=== PATIENT | female | born 1995 | race Caucasian/White ===

== ENCOUNTER 2019-08-16 17:53 | Outpatient (CLI) | payer OTHER ==
--- NOTE | 2019-08-16 22:39 | Ultrasound Report ---
Reason: POSITIVE TEST Procedure Date: 08/16/2019 Accession Number: [id number] / [id number] Procedure: US - OB First Trimester CPT Code: Final Report FULL RESULT: PROCEDURE: OB First Trimester INDICATIONS: POSITIVE TEST OUTSIDE/PRIOR DATING DATA: Last menstrual period (LMP): 06/14/2019. LMP-based estimated date of delivery (LILIANA): 03/20/2020. First dating scan (date and location): 08/16/2019. Estimated date of delivery (LILIANA) from first dating scan: 03/20/2020. TECHNIQUE: Real-time scanning was performed of the fetus and maternal pelvic organs, with image documentation. COMPARISON: None. FINDINGS: Embryo: There is a single living intrauterine gestation with an estimated sonographic gestational age of approximately 9 weeks and 6 days based off mean gestational sac diameter 4.4 cm. Estimated gestational age based off crown-rump length of 2.1 cm is approximately 8 weeks and 5 days. heart rate measured 160 bpm. A pole and normal yolk sac is visualized. There is a perigestational hemorrhage measuring 1.2 x 0.9 x 1.1 cm. Measurement variability in dating: +/- 4 weeks by LMP, +/- 7 days by mean sac diameter (use before 6 weeks gestation if crown-rump length not able to be measured), +/- 5 days by crown-rump length (6-12 weeks gestation). Maternal organs: There is a corpus luteal cyst noted in the left ovary. Right ovary is obscured by bowel gas. Maternal cervical length measured 3.8 cm in length. Limited images through the kidneys demonstrate no hydronephrosis. IMPRESSION: 1. Single living intrauterine gestation with an estimated sonographic gestational age of approximately 8 weeks and 5 days. Recommend follow-up second trimester anatomic screening survey. 2. Small perigestational hemorrhage. Recommend continued clinical surveillance. Reviewed by: Merlin Kohler MD on 08/16/2019 10:38 PM PDT Approved by: Merlin Kohler MD on 08/16/2019 10:38 PM PDT Station ID: [id number]
== END 2019-08-16 17:54 | disposition home or self-care (01) ==
LOC: DI 17:53
PROVIDERS: ATTEND Advanced Practice Midwife
DX: O20.9 Hemorrhage in early pregnancy, unspecified (principal); Z3A.08 8 weeks gestation of pregnancy
CPT/HCPCS: 76801

== ENCOUNTER 2019-08-25 08:00 | Outpatient (CLI) | payer OTHER ==
[2019-08-25 15:46] LABS: MUDS CUTOFF CONCENTRATIONS CUTOFF CONC BELOW:
[2019-08-25 16:01] LABS: BILIRUBIN,URINE NEGATIVE (NEGATIVE); GLUCOSE, URINE (UA) NEGATIVE (NEGATIVE); KETONES,URINE (UA) NEGATIVE (NEGATIVE); LEUKOCYTE ESTERASE, URINE NEGATIVE (NEGATIVE); NITRITE,URINE NEGATIVE (NEGATIVE); OCCULT BLOOD,URINE NEGATIVE (NEGATIVE); PROTEIN,URINE NEGATIVE (NEGATIVE); UROBILINOGEN,URINE 0.2 (NORMAL) E.U./dL (NORMAL)
[2019-08-25 16:04] LABS: CLARITY,URINE HAZY (CLEAR)
[2019-08-25 16:08] LABS: AMPHETAMINE SCREEN,URINE NEGATIVE (NEGATIVE); BENZODIAZEPINES SCREEN, URINE NEGATIVE (NEGATIVE); COCAINE SCREEN URINE NEGATIVE (NEGATIVE); METHADONE SCREEN, URINE NEGATIVE (NEGATIVE); METHAMPHETAMINES SCREEN, URINE NEGATIVE (NEGATIVE); OPIATE SCREEN, URINE NEGATIVE (NEGATIVE); OXYCODONE SCREEN, URINE NEGATIVE (NEGATIVE); PROPOXYPHENE SCREEN, URINE NEGATIVE (NEGATIVE); TRICYCLIC ANTIDEPRESSANT,URINE NEGATIVE (NEGATIVE)
[2019-08-25 16:18] LABS: AMORPHOUS SEDIMENT,UR Moderate /LPF; BACTERIA,URINE None Seen /HPF (None Seen); RBC,URINE None Seen /HPF (0-5); SQUAMOUS EPITHELIAL CELL,UR NONE SEEN (<= Few)
[2019-08-25 18:37] LABS: CANDIDA GROUP DNA NEGATIVE (NEGATIVE); CANDIDA KRUSEI DNA NEGATIVE (NEGATIVE); TRICHOMONAS VAGINALIS DNA NEGATIVE (NEGATIVE)
== END 2019-08-25 23:59 | disposition home or self-care (01) ==
LOC: LAB.R 08:00
PROVIDERS: ATTEND Advanced Practice Midwife
DX: Z34.90 Encounter for supervision of normal pregnancy, unspecified, unspecified trimester (principal); Z36.89 Encounter for other specified antenatal screening; N76.0 Acute vaginitis
CPT/HCPCS: 80306; 81001; 87086; 87661; 87801

== ENCOUNTER 2019-08-30 13:11 | Outpatient (CLI) | payer OTHER ==
[2019-08-30 18:27] LABS: BASOPHILS % (AUTO) 0.3 %; EOSINOPHILS # (AUTO) 0.1 10^3/uL (0.0-0.7); HGB - HEMOGLOBIN 13.5 g/dL (12.0-16.0); LYMPHOCYTES % (AUTO) 14.2 %; MEAN CORPUSCULAR HEMOGLOBIN 29.9 pg (27.0-31.0); MEAN CORPUSCULAR HGB CONC 33.1 g/dL (32.0-36.0); MEAN CORPUSCULAR VOLUME 90.3 fL (81.0-99.0); MEAN PLATELET VOLUME 11.2 fL (7.9-10.8); MONOCYTES # (AUTO) 0.4 10^3/uL (0.0-1.0); MONOCYTES % (AUTO) 5.3 %; NEUTROPHILS # (AUTO) 5.3 10^3/uL (1.5-6.6); NEUTROPHILS % (AUTO) 78.8 %; PLT - PLATELET COUNT 211 10^3/uL (130-450); RED BLOOD COUNT 4.52 10^6/uL (4.20-5.40); RED CELL DISTRIBUTION WIDTH 12.2 % (12.0-15.0); WHITE BLOOD COUNT 6.8 x10^3/uL (4.8-10.8)
[2019-08-31 09:55] LABS: HIV AG/AB 4TH GEN NON-REACTIVE (NON-REACTIVE)
[2019-08-31 13:04] LABS: HEPATITIS B SURFACE ANTIGEN NON-REACTIVE (NON-REACTIVE)
== END 2019-08-30 23:59 | disposition home or self-care (01) ==
LOC: LAB.WCP 13:11
PROVIDERS: ATTEND Advanced Practice Midwife
DX: O99.280 Endocrine, nutritional and metabolic diseases complicating pregnancy, unspecified trimester (principal); E03.9 Hypothyroidism, unspecified; Z36.89 Encounter for other specified antenatal screening; Z3A.00 Weeks of gestation of pregnancy not specified; Z20.6 Contact with and (suspected) exposure to human immunodeficiency virus [HIV]
CPT/HCPCS: 36415; 81599; 84443; 85025; 86592; 86762; 86850; 86900; 86901; 87340; 87389; 87522

== ENCOUNTER 2019-11-03 07:00 | Outpatient (CLI) | payer OTHER ==
[2019-11-03 19:12] LABS: CANDIDA GROUP DNA NEGATIVE (NEGATIVE); CANDIDA KRUSEI DNA NEGATIVE (NEGATIVE); TRICHOMONAS VAGINALIS DNA NEGATIVE (NEGATIVE)
== END 2019-11-03 23:59 | disposition home or self-care (01) ==
LOC: LAB.R 07:00
PROVIDERS: ATTEND Advanced Practice Midwife
DX: N76.0 Acute vaginitis (principal); Z34.90 Encounter for supervision of normal pregnancy, unspecified, unspecified trimester
CPT/HCPCS: 87661; 87801

== ENCOUNTER 2019-11-09 07:00 | Outpatient (CLI) | payer OTHER ==
[2019-11-10 10:19] LABS: BILIRUBIN,URINE NEGATIVE (NEGATIVE); GLUCOSE, URINE (UA) NEGATIVE (NEGATIVE); KETONES,URINE (UA) NEGATIVE (NEGATIVE); LEUKOCYTE ESTERASE, URINE NEGATIVE (NEGATIVE); NITRITE,URINE NEGATIVE (NEGATIVE); OCCULT BLOOD,URINE NEGATIVE (NEGATIVE); PH,URINE 7.5 PH (5.0-7.5); PROTEIN,URINE NEGATIVE (NEGATIVE); UROBILINOGEN,URINE 0.2 (NORMAL) E.U./dL (NORMAL)
[2019-11-10 10:23] LABS: CLARITY,URINE CLEAR (CLEAR)
[2019-11-10 10:33] LABS: AMORPHOUS SEDIMENT,UR Few /LPF; BACTERIA,URINE Few /HPF (None Seen); SQUAMOUS EPITHELIAL CELL,UR FEW Squamous (<= Few)
== END 2019-11-09 23:59 | disposition home or self-care (01) ==
LOC: LAB.R 07:00
PROVIDERS: ATTEND Advanced Practice Midwife
DX: N76.0 Acute vaginitis (principal)
CPT/HCPCS: 81001; 87086

== ENCOUNTER 2019-11-14 16:52 | Outpatient (CLI) | payer OTHER ==
[2019-11-14 17:36] LABS: BILIRUBIN,URINE NEGATIVE (NEGATIVE); GLUCOSE, URINE (UA) NEGATIVE (NEGATIVE); KETONES,URINE (UA) NEGATIVE (NEGATIVE); LEUKOCYTE ESTERASE, URINE NEGATIVE (NEGATIVE); NITRITE,URINE NEGATIVE (NEGATIVE); OCCULT BLOOD,URINE MODERATE (NEGATIVE); PROTEIN,URINE NEGATIVE (NEGATIVE); UROBILINOGEN,URINE 0.2 (NORMAL) E.U./dL (NORMAL)
[2019-11-14 17:46] LABS: CLARITY,URINE CLEAR (CLEAR)
[2019-11-14 17:47] LABS: BACTERIA,URINE None Seen /HPF (None Seen); RBC,URINE 0-5 /HPF (0-5); SQUAMOUS EPITHELIAL CELL,UR RARE Squamous (<= Few)
[2019-11-14 19:51] VITALS: BP 114/58
[2019-11-14] MEDS ORDERED: metroNIDAZOLE 250 MG TABLET PO SCH (19:57)
--- NOTE | 2019-11-14 20:20 | Ultrasound Report ---
PROCEDURE: OB Limited INDICATIONS: 22 weeks with cramping, cervix short digital exam OUTSIDE/PRIOR DATING DATA: Last menstrual period (LMP): 06/14/2019. LMP-based estimated date of delivery (LILIANA): 03/20/2020. First dating scan (date and location): 08/16/2019. Estimated date of delivery (LILIANA) from first dating scan: 03/22/2020. TECHNIQUE: Real-time scanning was performed of the fetus, with image documentation. Endovaginal scanning: Not needed COMPARISON: 2 prior OB ultrasound studies for this 08/16/2019, and 10/30/2019. FINDINGS: A single living intrauterine gestation is present. Presentation: Breech Placenta: Placental position is anterior, without previa. Amniotic fluid index: 15.8 cm, normal for gestational age. heart rate: 137 beats per minutes. Maternal cervical canal: 3.8 cm long; normal length is 2.5 cm or more. Estimated gestational age from initial scan: 21 weeks 4 days. IMPRESSION: Single living intrauterine gestation with vertex presentation currently, vertex previous ly. There is a normal amniotic fluid volume, and no evidence of placenta previa. No sign of placental abruption. No subchorionic hemorrhage. Reviewed by: Larry Baez MD on 11/14/2019 8:18 PM PDT Approved by: Larry Baez MD on 11/14/2019 8:18 PM PDT Station ID: [id number]
--- NOTE | 2019-11-14 20:34 | PROCEDURE REPORT ---
- HPI Diagnosis/Indication for NST: Other (Cramping pain) Vital Signs Temperature 99.0 F 11/14/19 19:47 Heart Rate 71 11/14/19 19:47 Respiratory Rate 18 11/14/19 19:47 Blood Pressure 114/58 L 11/14/19 19:47 O2 Saturation 98 11/14/19 19:47 Temperature 99.0 F 11/14/19 19:47 Heart Rate 71 11/14/19 19:47 Respiratory Rate 18 11/14/19 19:47 Blood Pressure 114/58 L 11/14/19 19:47 O2 Saturation 98 11/14/19 19:47 - Results and Plan Findings/Impression: Came to ER for abdominal cramping for the past day, has flared today to become moderate, cramping is constant and does not have waves. Currently cramping has resolved. Having some changes in vaginal discharge. Life-long issues with being able to hold bladder very long and has nocturia 4-5x at night even when not . O: AVSS toco negative FHT normal Wet mount: clue cells GC/CT: pending Cervical length: 3.8cm UA neg except for blood A/P: 24y P0 at 22w with bacterial vaginosis causing abdominal cramping. No evidence of contractions on [place] and her CL is normal. Treat with flagyl and RTC PRN increasing symptoms. Discussed her hx of frequent voids and frequent nocturia--encouraged urology consult , consider pelvic floor PT, and stop caffiene now.
== END 2019-11-14 20:47 | disposition home or self-care (01) ==
LOC: FBP 16:52 → WFO 16:52
PROVIDERS: ATTEND Obstetrics & Gynecology
DX: O23.592 Infection of other part of genital tract in pregnancy, second trimester (principal); Z3A.22 22 weeks gestation of pregnancy; R35.1 Nocturia; R35.0 Frequency of micturition
CPT/HCPCS: 76815; 81001; 81599; 87210; 99213; A9270; 87086; 87491; 87591; 87661